=== PATIENT | male | born 1975 | race Caucasian/White ===

== ENCOUNTER 2017-04-13 06:14 | Emergency (ER) | payer SELFPAY ==
[2017-04-13] MEDS ORDERED: NS 0.9% 1000 ML* 2,000 ML IV ONE (07:45)
[2017-04-13 08:16] LABS: Hematocrit 40 % (42-52); Hemoglobin 14.1 g/dl (14.0-18.0); Mean Corpuscular HGB Conc 35 g/dl (31-36); Mean Corpuscular Hemoglobin 32 pg (27-31); Mean Corpuscular Volume 90 fL (80-94); Mean Platelet Volume 7 um3 (7.4-10.4); Red Blood Count 4.49 10^6/ul (4.0-5.4); Red Cell Distribution Width 14 % (10.5-15); White Blood Count 10.2 10^3/ul (3.5-10.8)
[2017-04-13 08:31] LABS: Albumin 4.1 g/dL (3.2-5.2); BUN/Creatinine Ratio 13.3 (8-20); C Reactive Protein 179.65 mg/L (< 5.00); Calcium 9.3 mg/dL (8.6-10.3); EGFR African American 146.2 (>60); EGFR Non-African American 113.7 (>60); Globulin 3.4 g/dL (2-4); Potassium 3.7 mmol/L (3.5-5.0); Total Bilirubin 1.9 mg/dL (0.2-1.0); Total Protein 7.5 g/dL (6.4-8.9)
[2017-04-13] MEDS ORDERED: Iohexol 300* (CONTRAST) 10 ML SDV IV ONE (09:00)
[2017-04-13 09:04] LABS: Urine Bilirubin Negative (Negative); Urine Glucose Negative (Negative); Urine Nitrite Negative (Negative)
--- NOTE | 2017-04-13 10:05 | RAD ---
INDICATION: Left lower quadrant pain COMPARISON: None TECHNIQUE: Axial source images were obtained from the hemidiaphragms to the symphysis pubis following administration of oral and intravenous contrast. 131 mL Omnipaque 300 was utilized. Coronal and sagittal reconstructed images were acquired. Lung bases: The lung bases are clear. Liver: The liver is borderline enlarged and there is mild hepatic steatosis. There are no masses. There is no ductal dilatation. Gallbladder: The gallbladder is partially and therefore evaluation is suboptimal.. There are no calcified gallstones. Spleen: The spleen is normal in size. There are no masses. Pancreas: There is no focal pancreatic mass or ductal dilatation. Adrenal glands: There is no evidence of adrenal mass. Kidneys: The kidneys are normal in size and position. There are prompt nephrograms and there is prompt excretion bilaterally. There are no renal parenchymal masses. There is no evidence of nephrolithiasis. Adenopathy: There is no evidence of adenopathy by size criteria. Fluid collections: Free fluid left paracolic gutter and dependent portion of the pelvis. Vessels:There are no significant atherosclerotic changes involving the aorta. There is no focal aneurysm. The iliac vessels are normal in caliber. The IVC appears normal. GI tract: There is a small hiatal hernia. The remainder the upper GI tract is unremarkable. There is extensive inflammatory change with mucosal thickening involving the distal descending and sigmoid colon with extensive diverticula. The findings are compatible with acute diverticulitis. There are no findings of obstruction or perforation. Pelvic organs: The prostate and seminal vesicles appear normal Bladder: There are no bladder masses. Abdominal and pelvic soft tissues: Small fat-containing right internal hernia. Osseous structures: There are no acute osseous findings. Other: None IMPRESSION: CT FINDINGS OF ACUTE DIVERTICULITIS OF THE DISTAL DESCENDING AND SIGMOID COLON WITH SIGNIFICANT INFLAMMATORY RESPONSE.
[2017-04-13] MEDS ORDERED: metroNIDAZOLE TAB* 250 MG PO ONE (10:41)
[2017-04-13] MEDS ORDERED: Ciprofloxacin TAB* 500 MG PO ONE (10:41)
--- NOTE | 2017-04-13 10:48 | ED ---
Colt Preciado Benjamin, scribed for Jerod Zamora MD on 04/13/17 at 0756 . Abdominal Pain/Male - HPI Summary HPI Summary: 41yo male c/o of LLQ and left suprapubic pain that started Tuesday night. Pain has gotten worse last night, and movement makes his pain worse. Pain gets sharp when pt moves. Pt denies pain radiating anywhere, denies back pain, testicular pain, or any urinary symptoms. Reports mild chills and nausea. No hx of abdominal surgeries. Denies recent trauma, but pt has reported doing some laborious work, moving logs during the weekend and felt like his digestion has been off lately. Last BM was yesterday at 8pm, which pt had smaller amount of bowel compared to his normal baseline. Pt declines nausea or pain meds at the time seen. Pt also has a red rash on his left upper abdomen. - History of Current Complaint Chief Complaint: EDAbdPain Stated Complaint: LLQ PAIN Time Seen by Provider: 04/13/17 07:38 Hx Obtained From: Patient, Family/Creative Recruiter - Onset/Duration: Sudden Onset, Lasting Days - 3 days, Still Present, Worse Since - yesterday Timing: Constant Severity Initially: Mild Severity Currently: Moderate Pain Intensity: 8 Pain Scale Used: 0-10 Numeric Location: Discrete At: LLQ Radiates: No Character: Sharp Aggravating Factor(s): Movement Alleviating Factor(s): Nothing Associated Signs And Symptoms: Positive: Other - chills. Negative: Fever, Back Pain, Constipation, Blood in Stool, Urinary Symptoms - Allergies/Home Medications Allergies/Adverse Reactions: Allergies Allergy/AdvReac Type Severity Reaction Status Date / Time No Known Allergies Allergy Verified 04/13/17 06:18 PMH/Surg Hx/FS Hx/Imm Hx Cardiovascular History: Denies: Hx Congenital Heart Disease, Hx Hypertension Infectious Disease History: No Infectious Disease History: Denies: Traveled Outside the [place] in Last 30 Days - Family History Known Family History: Negative: Cardiac Disease, Hypertension, Diabetes - Social History Occupation: Employed Full-time Lives: With Family Alcohol Use: None Substance Use Type: Reports: None Smoking Status (MU): Never Smoked Tobacco Review of Systems Positive: Chills Eyes: Negative ENT: Negative Cardiovascular: Negative Respiratory: Negative Positive: Abdominal Pain - LLQ, Nausea. Negative: Vomiting, Diarrhea Genitourinary: Negative Negative: dysuria, flank pain, pain Musculoskeletal: Negative Positive: Rash - red rash on Left upper abdomen Neurological: Negative Psychological: Normal All Other Systems Reviewed And Are Negative: Yes Physical Exam Triage Information Reviewed: Yes Vital Signs On Initial Exam: Initial Vitals Temp Pulse Resp BP Pulse Ox 97.7 F 87 16 133/87 98 04/13/17 06:17 04/13/17 06:17 04/13/17 06:17 04/13/17 06:17 04/13/17 06:17 Vital Signs Reviewed: Yes Appearance: Positive: Well-Appearing, No Pain Distress, Well-Nourished Skin: Positive: Warm, Skin Color Reflects Adequate Perfusion, Dry, Erythema @ - Left upper abdomen rash, Other - 3x3cm Rash on Left upper abdomen that is limited to the area. Erythematous, no vesicles. Head/Face: Positive: Normal Head/Face Inspection Eyes: Positive: Normal ENT: Positive: Normal ENT inspection Neck: Positive: Supple, Nontender Respiratory/Lung Sounds: Positive: Clear to Auscultation, Breath Sounds Present Cardiovascular: Positive: RRR Abdomen Description: Positive: No Organomegaly, Soft, Other: - LLQ Tenderness. Negative: CVA Tenderness (R), CVA Tenderness (L), Pulsatile Mass Bowel Sounds: Positive: Hypoactive Musculoskeletal: Positive: Strength/ROM Intact Neurological: Positive: Sensory/Motor Intact, Alert, Oriented to Person Place, Time Psychiatric: Positive: Affect/Mood Appropriate - Andrew Coma Scale Coma Scale Total: 15 Diagnostics - Vital Signs Vital Signs Temp Pulse Resp BP Pulse Ox 04/13/17 06:19 97.7 F 87 16 133/87 98 04/13/17 06:17 97.7 F 87 16 133/87 98 - Laboratory Lab Results: Lab Results 04/13/17 04/13/17 04/13/17 Range/Units 07:53 07:53 07:53 WBC 10.2 (3.5-10.8) 10^3/ul RBC 4.49 (4.0-5.4) 10^6/ul Hgb 14.1 (14.0-18.0) g/dl Hct 40 L (42-52) % MCV 90 (80-94) fL MCH 32 H (27-31) pg MCHC 35 (31-36) g/dl RDW 14 (10.5-15) % Plt Count 265 (150-450) 10^3/ul MPV 7 L (7.4-10.4) um3 Neut % (Auto) 74.7 (38-83) % Lymph % (Auto) 14.7 L (25-47) % [place] % (Auto) 9.4 H (1-9) % Eos % (Auto) 0.8 (0-6) % Baso % (Auto) 0.4 (0-2) % Absolute Neuts (auto) 7.6 (1.5-7.7) 10^3/ul Absolute Lymphs (auto) 1.5 (1.0-4.8) 10^3/ul Absolute Monos (auto) 1.0 H (0-0.8) 10^3/ul Absolute Eos (auto) 0.1 (0-0.6) 10^3/ul Absolute Basos (auto) 0 (0-0.2) 10^3/ul Absolute Nucleated RBC 0.01 10^3/ul Nucleated RBC % 0 Sodium 134 (133-145) mmol/L Potassium 3.7 (3.5-5.0) mmol/L Chloride 101 (101-111) mmol/L Carbon Dioxide 26 (22-32) mmol/L Anion Gap 7 (2-11) mmol/L BUN 10 (6-24) mg/dL Creatinine 0.75 (0.67-1.17) mg/dL Est GFR ( Amer) 146.2 (>60) Est GFR (Non-Af Amer) 113.7 (>60) BUN/Creatinine Ratio 13.3 (8-20) Glucose 114 H (70-100) mg/dL Lactic Acid 0.7 (0.5-2.0) mmol/L Calcium 9.3 (8.6-10.3) mg/dL Total Bilirubin 1.90 H (0.2-1.0) mg/dL AST 21 (13-39) U/L ALT 24 (7-52) U/L Alkaline Phosphatase 64 (34-104) U/L C-Reactive Protein 179.65 H (< 5.00) mg/L Total Protein 7.5 (6.4-8.9) g/dL Albumin 4.1 (3.2-5.2) g/dL Globulin 3.4 (2-4) g/dL Albumin/Globulin Ratio 1.2 (1-3) Lipase 15 (11.0-82.0) U/L Urine Color Urine Appearance Urine pH (5-9) Ur Specific [place] (1.010-1.030) Urine Protein (Negative) Urine Ketones (Negative) Urine Blood (Negative) Urine Nitrate (Negative) Urine Bilirubin (Negative) Urine Urobilinogen (Negative) Ur Leukocyte Esterase (Negative) Urine Glucose (Negative) 04/13/17 Range/Units 08:40 WBC (3.5-10.8) 10^3/ul RBC (4.0-5.4) 10^6/ul Hgb (14.0-18.0) g/dl Hct (42-52) % MCV (80-94) fL MCH (27-31) pg MCHC (31-36) g/dl RDW (10.5-15) % Plt Count (150-450) 10^3/ul MPV (7.4-10.4) um3 Neut % (Auto) (38-83) % Lymph % (Auto) (25-47) % [place] % (Auto) (1-9) % Eos % (Auto) (0-6) % Baso % (Auto) (0-2) % Absolute Neuts (auto) (1.5-7.7) 10^3/ul Absolute Lymphs (auto) (1.0-4.8) 10^3/ul Absolute Monos (auto) (0-0.8) 10^3/ul Absolute Eos (auto) (0-0.6) 10^3/ul Absolute Basos (auto) (0-0.2) 10^3/ul Absolute Nucleated RBC 10^3/ul Nucleated RBC % Sodium (133-145) mmol/L Potassium (3.5-5.0) mmol/L Chloride (101-111) mmol/L Carbon Dioxide (22-32) mmol/L Anion Gap (2-11) mmol/L BUN (6-24) mg/dL Creatinine (0.67-1.17) mg/dL Est GFR ( Amer) (>60) Est GFR (Non-Af Amer) (>60) BUN/Creatinine Ratio (8-20) Glucose (70-100) mg/dL Lactic Acid (0.5-2.0) mmol/L Calcium (8.6-10.3) mg/dL Total Bilirubin (0.2-1.0) mg/dL AST (13-39) U/L ALT (7-52) U/L Alkaline Phosphatase (34-104) U/L C-Reactive Protein (< 5.00) mg/L Total Protein (6.4-8.9) g/dL Albumin (3.2-5.2) g/dL Globulin (2-4) g/dL Albumin/Globulin Ratio (1-3) Lipase (11.0-82.0) U/L Urine Color Yellow Urine Appearance Clear Urine pH 7.0 (5-9) Ur Specific [place] 1.008 L (1.010-1.030) Urine Protein Negative (Negative) Urine Ketones Negative (Negative) Urine Blood Negative (Negative) Urine Nitrate Negative (Negative) Urine Bilirubin Negative (Negative) Urine Urobilinogen Negative (Negative) Ur Leukocyte Esterase Negative (Negative) Urine Glucose Negative (Negative) Result Diagrams: 04/13/17 07:53 04/13/17 07:53 Lab Statement: Any lab studies that have been ordered have been reviewed, and results considered in the medical decision making process. - CT CT A/P W CT Interpretation: Positive (See Comments) - IMPRESSION: CT FINDINGS OF ACUTE DIVERTICULITIS OF THE DISTAL DESCENDING AND SIGMOID COLON WITH SIGNIFICANT INFLAMMATORY RESPONSE. CT Interpretation Completed By: Radiologist Re-Evaluation - Re-Evaluation First Eval Re-Evaluation Time: 10:41 Comment: Reviewed pts lab and imaging results with the pt. Also discussed course of treatment and disposition, as well as follow up plans. Abdominal Pain Fem Course/Dx - Course Course Of Treatment: Reviewed pts medication and allergy lists. Blood pressure noted. DISCUSSED RESULTS WITH PATIENT. PATIENT TOLERATING LIQUIDS. DECLINES PAIN RX. RX CIPRO/FLAGYL, F/U PMD; RETURN IF WORSE. - Diagnoses Provider Diagnoses: Diverticulitis Discharge - Discharge Plan Condition: Stable Disposition: HOME Prescriptions: Ciprofloxacin TAB* [Cipro 500 MG TAB*] 500 mg PO BID #19 tab Metronidazole [Flagyl 500 MG TAB] 500 mg PO QID #39 tab Ondansetron ODT TAB* [Zofran 4 MG Odt TAB*] 4 mg PO Q6H PRN #10 tab.odt PRN Reason: Nausea Patient Education Materials: Diverticulitis (ED) Forms: *Work Release Referrals: Vero Vazquez MD [Medical Doctor] - Additional Instructions: FOLLOW UP WITH YOUR DOCTOR. RETURN TO THE EMERGENCY DEPARTMENT FOR ANY WORSENING OF YOUR CONDITION; PAIN, FEVER, VOMITING, YOU FEEL ILL OR QUESTIONS OR CONCERNS. The documentation as recorded by the Colt weaver Benjamin accurately reflects the service I personally performed and the decisions made by me, Jerod Zamora MD.
[2017-04-13 11:49] VITALS: BP 146/95
== END 2017-04-13 11:48 | disposition home or self-care (01) ==
LOC: ED 06:14
DX: K57.92 Diverticulitis of intestine, part unspecified, without perforation or abscess without bleeding (principal); R10.32 Left lower quadrant pain; R11.0 Nausea
CPT/HCPCS: 36415; 74177; 80053; 81003; 83605; 83690; 85025; 86140; 99284; A9270-GY; Q9967